=== PATIENT | male | born 1995 | race Caucasian/White ===

== ENCOUNTER 2021-04-15 09:27 | Emergency (ER) | payer OTHER, SELFPAY ==
[2021-04-15 09:31] VITALS: BP 183/93; PULSE 88; RESP 18; TEMP 36.7; O2SAT 97
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
[2021-04-15 12:10] LABS: Hepatitis B Surface Antigen Negative (Negative)
[2021-04-15 12:11] LABS: HIV 1/2 Ab P24 Ag Result Negative (Negative)
[2021-04-15 12:28] LABS: Hepatitis C Virus Antibody Negative (Negative)
== END 2021-04-15 11:55 | disposition home or self-care (01) ==
PROVIDERS: Emergency Medicine Emergency Medical Services; Emergency Provider General Practice
DX: Z77.21 Contact with and (suspected) exposure to potentially hazardous body fluids (principal)
CPT/HCPCS: 36415; 86703; 86803; 87340; 99283; G0432

== ENCOUNTER 2021-08-07 23:10 | Emergency (ER) | payer OTHER, SELFPAY ==
--- NOTE | ~2021-08-07 | XR_ITS ---
EXAMINATION: XR tibia fibula RT 2V INDICATION: Right leg pain TECHNIQUE: Two views of the right tibia and fibula are obtained on four radiographs. COMPARISON: 07/04/2009 FINDINGS: No acute fracture is identified. There appears to be a healed fracture of the proximal righ t fibula. Bone alignment at the knee and ankle is normal. The soft tissues are unremarkable. IMPRESSION: 1. No acute osseous abnormality. Reviewed, dictated and finalized at location A.
[2021-08-07 23:20] VITALS: BP 158/85; PULSE 84; RESP 17; TEMP 37.2; O2SAT 97
--- NOTE | 2021-08-07 23:42 | ED.LOWEXIN ---
HPI - Extremity Injury (Lower) General Chief Complaint: Extremity Injury, Lower Stated Complaint: leg injury Time Seen by Provider: 08/07/21 23:38 Source: patient Mode of arrival: ambulatory Limitations: no limitations History of Present Illness HPI Narrative: Patient is a 26-year-old male complaining of right calf pain after hearing something popped while running during a baseball game started prior to arrival. Patient states that his pain is a 1 out of 10 if he does not move but 10 out of 10 with any movement and cannot bear any weight. Patient denies any other pain or injury. Related Data Allergies Allergy/AdvReac Type Severity Reaction Status Date / Time No Known Allergies Allergy Unknown Unverified 02/05/06 10:57 Review of Systems Review of Systems: All systems reviewed & are unremarkable except as noted in HPI and below Constitutional: Constitutional: Denies body ache(s), Denies chills, Denies excessive sweating, Denies fatigue, Denies fever(s), Denies headache(s), Denies lethargy, Denies malaise, Denies weakness and Denies weight loss Eyes: Eyes: Denies blurry vision, Denies change in vision and Denies loss of vision ENT: Denies dizziness, Denies ear discharge, Denies headache(s), Denies lip swelling, Denies epistaxis, Denies nasal congestion, Denies neck pain, Denies throat swelling and Denies tongue swelling Cardiovascular: Cardiovascular: Denies chest pain, Denies chest pain at rest, Denies chest pain with activity, Denies diaphoresis, Denies rapid heart rate, Denies edema, Denies irregular heart rhythm, Denies lightheadedness, Denies palpitations, Denies dyspnea and Denies dyspnea on exertion Respiratory: Respiratory: Denies chest congestion, Denies cough, Denies hemoptysis, Denies dyspnea and Denies dyspnea on exertion Gastrointestinal: Gastrointestinal: Denies abdominal pain, Denies melena, Denies hematochezia, Denies diarrhea, Denies nausea, Denies vomiting and Denies hematemesis Musculoskeletal: Musculoskeletal: Denies abnormal gait, Denies deformity, Denies joint swelling, Denies neck pain and Denies numbness Neurologic: Denies Abnormal speech present, Denies abnormal gait, Denies confusion, Denies dizziness, Denies headache(s), Denies focal weakness, Denies loss of vision, Denies numbness, Denies Other visual disturbances, Denies Sensory deficit (Neuro) and Denies weakness Psychiatric: Psychiatric: Denies confusion, Denies depression, Denies auditory hallucinations, Denies homicidal ideation and Denies suicidal ideation Endocrine: Endocrine: Denies cold intolerance, Denies excessive sweating, Denies fatigue, Denies heat intolerance and Denies palpitations Hematologic/Lymphatic: Hematologic/Lymphatic: Denies easy bleeding and Denies easy bruising Allergic/Immunologic: Allergic/Immunologic: Denies lip swelling, Denies throat swelling and Denies tongue swelling [facility] Surgical History Surgical History (Updated 04/15/21 @ 11:33 by Sylvester Lock PA-C) History of orthopedic surgery Social History Social History Gender identity (if verbalized by the patient): Male Comments Past medical history: None Surgical history: Orthopedic surgery Family history: Noncontributory Social history: Non-smoker no EtOH or drug use Exam Const: General: cooperative, healthy appearing, comfortable, no acute distress, well developed, alert and awake; No confusion Orientation/consciousness: oriented to person, oriented to place, oriented to time, patient oriented x3 and No confusion Limitations: no limitations HENMT: Head: normal to inspection, normocephalic and atraumatic Ears: hearing grossly normal bilaterally, TM normal on the right and TM normal on the left General nose exam: Normal external nose present, Normal nares present and No nasal discharge present Face and sinus: normal facial exam Mouth: Yes Normal oral and palatal mucosa present, Yes lip normal, Yes t
[2021-08-08] VITALS: BP 143/91; PULSE 78; RESP 14; O2SAT 98
== END 2021-08-08 00:25 | disposition home or self-care (01) ==
PROVIDERS: Emergency Provider Emergency Medicine
DX: S86.811A Strain of other muscle(s) and tendon(s) at lower leg level, right leg, initial encounter (principal); X50.9XXA Other and unspecified overexertion or strenuous movements or postures, initial encounter; Y93.64 Activity, baseball
CPT/HCPCS: 73590; 99283

== ENCOUNTER 2023-07-04 19:33 | Emergency (ER) | payer OTHER, SELFPAY ==
--- NOTE | ~2023-07-04 | XR_ITS ---
EXAMINATION: XR ribs LT 2V INDICATION: Left rib pain TECHNIQUE: 3 views of the left ribs were obtained. COMPARISON: None. FINDINGS: No displaced rib fracture is identified. The left lung is clear. The heart size is normal. The left shoulder is unremarkable. IMPRESSION: 1. No displaced rib fracture identified. Reviewed, dictated and finalized at location F.
[2023-07-04 19:37] VITALS: BP 147/87; PULSE 93; RESP 18; TEMP 36.9; O2SAT 99
--- NOTE | 2023-07-04 19:37 | ED.CHESTPAIN ---
HPI - Chest Pain General Chief Complaint: Fall Stated Complaint: left rib pain Time Seen by Provider: 07/04/23 19:38 Source: patient Mode of arrival: ambulatory Limitations: no limitations History of Present Illness HPI narrative: Abimbola is a 28-year-old male patient presenting to clinic today with complaints of left-sided rib pain. He reports he was diving to catch a ball during a soft ball game this evening and fell a crunch and pop to the left ribs just below the breast. Is having some discomfort with taking a deep breath. No bruising or swelling noted. Related Data Home Medications Medication Instructions Recorded Confirmed No Home Medications 08/13/21 07/04/23 Allergies Allergy/AdvReac Type Severity Reaction Status Date / Time No Known Allergies Allergy Unknown Verified 07/04/23 19:42 Review of Systems Review of Systems: Pertinent positives per HPI. Patient denies any fever, chills, rash, headache, visual changes, dizziness, cough, runny nose, sore throat, shortness of breath, chest pain, palpitations, nausea, vomiting, diarrhea, constipation, abdominal pain, or any urinary issues. [facility] Surgical History Surgical History History of orthopedic surgery Social History Social History Gender identity (if verbalized by the patient): Male Comments At the time of my signature, I reviewed and agree with the nursing past medical, surgical, social, and family history. There is no relevant family history pertinent to the patient complaint. Exam Narrative: General: Well-developed, well nourished, in no apparent distress Head: Normocephalic, atraumatic. Chest wall: Even rise and fall of the chest wall with respirations, tender to palpation over the left anterior ribs just below the breast, no bruising or swelling. Cardio: Regular rate and rhythm, s1 and s2 normal, no murmur appreciated. Resp: Clear to auscultation bilaterally, no rhonchi, rales, wheezing or rubs. Extremities: No deformity, no edema, no cyanosis, capillary refill less than 2 seconds, peripheral pulses palpable and strong. Integumentary: [place], warm, and dry, intact without lesion, no rashes. Course Course Emergency Course: Portions of this record may have been created with voice recognition software. Level of Care: Express Care Visit Vital Signs Vital signs: Vital signs reviewed MDM - Chest Pain MDM Narrative Medical decision making narrative: At the time of visit patient is resting comfortably on the exam table. X-ray of the left ribs was performed and negative for any sign of fracture or malalignment. I suspect patient has a rib contusion/chest wall contusion. Supportive measures were discussed and patient voiced understanding Differential Diagnosis Differential diagnosis: Likely fracture of rib, pneumothorax, atypical chest pain, costochondritis and other (rib contusion, chest wall contusion.) Imaging Data Radiologist's impression: ITS Impressions Ribs X-Ray 07/04/23 20:09 IMPRESSION: 1. No displaced rib fracture identified. Discharge Plan Discharge Clinical Impression: Contusion of rib on left side Patient Disposition: Home, Self-Care Condition: Stable Instructions: Antibiotic Form, Rib Contusion (ED) Additional Instructions: X-ray is negative for any sign of fracture or malalignment. Rest and ice for 20 minutes at a time every 1-2 hours x 48 hours then may switch to heat Tylenol/motrin for pain as discussed. May apply aspercream, blue emu, or lidocaine to the affected area. Follow up with your PCP if symptoms persist more than 1 week. Prescriptions: No Action No Home Medications Follow-up/Referrals: PHYSICIAN,DIRECTOR OF PHARMACY [Primary Care Provider] - Time of Disposition: 19:40 [employer] Nursing Documentation ED [facility] nursing documen
== END 2023-07-04 20:15 | disposition home or self-care (01) ==
PROVIDERS: Emergency Provider Nurse Practitioner Family
DX: S20.212A Contusion of left front wall of thorax, initial encounter (principal); W18.30XA Fall on same level, unspecified, initial encounter; Y93.64 Activity, baseball
CPT/HCPCS: 71100; 99213; G0463

== ENCOUNTER 2024-04-11 20:14 | Emergency (ER) | payer OTHER, SELFPAY ==
--- NOTE | ~2024-04-11 | XR_ITS ---
EXAMINATION: XR chest 1V portable DATE: 04/11/2024 21:38 INDICATION: Dizziness. TECHNIQUE: A single frontal view of the chest was obtained on 2 radiographs. COMPARISON: None. FINDINGS: There is no pneumonia, pleural effusion, or pneumothorax. The heart size is normal. IMPRESSION: 1. No acute cardiopulmonary disease. Reviewed, dictated and finalized at location E.
--- NOTE | ~2024-04-11 | CT_ITS ---
CT ANGIOGRAM NECK AND HEAD History: Lightheadedness, right neck pressure. Technique: Axial noncontrast imaging of the brain was performed. Serial spiral axial images through t he head and neck were then obtained during arterial phase IV injection of 100 cc of Omnipaque 350. 3- D postprocessing and MIP images were then reconstructed on the remote workstation. Dose reduction arnie hnique was used on this scan by utilizing automated exposure control and iterative reconstruction arnie hnique. The dose-length product (DLP) was 1782.97 mGy-cm. CTA neck findings: Bilateral vertebral arteries are patent. Bilateral common carotid, internal carot id, and external carotid arteries are patent. No stenosis or occlusion. No aneurysm. The proximal rig ht internal carotid artery demonstrates 0% stenosis relative to the normal distal artery lumen diamet er. The proximal left internal carotid artery demonstrates 0% stenosis relative to the normal distal artery lumen diameter. CTA head findings: Distal vertebral arteries, basilar artery, and posterior cerebral arteries are pat ent. Distal internal carotid arteries, middle cerebral arteries, and anterior cerebral arteries are p atent. No stenosis or large vessel occlusion. No aneurysm. Axial noncontrast imaging of the brain is unremarkable. No acute infarct, intracranial hemorrhage, or mass lesion identified. Antonio-white differentiation is preserved. No mass effect or midline shift. Ve ntricles and subarachnoid spaces are unremarkable. Paranasal sinuses and mastoid air cells are clear. Calvarium intact. Impression: Unremarkable exam. Reviewed, dictated and finalized at [facility]. Impression: Unremarkable exam.
[2024-04-11 20:16] VITALS: BP 126/92; PULSE 74; RESP 14; TEMP 36.4; O2SAT 98
[2024-04-11 20:46] VITALS: BP 157/85; PULSE 85; RESP 17; O2SAT 97
--- NOTE | 2024-04-11 21:20 | ECG_ITS ---
Test Date: 2024-04-11 21:27:21 Measurements Intervals [place] Rate: 73 P: 55 CA: 188 QRS: 25 QRSD: 85 T: 13 QT: 375 QTc: 414 Interpretive Statements SINUS RHYTHM NORMAL ELECTROCARDIOGRAM No previous ECG available for comparison Electronically Signed On 04-12-2024 07:26:54 CDT by Alexis Menendez M.D.
[2024-04-11 21:32] VITALS: BP 140/83; PULSE 77; RESP 25; O2SAT 99
[2024-04-11] MEDS: SODIUM CHLORIDE 0.9% IV 1,000 ML 999 ML IV CONT (21:44)
[2024-04-11 21:45] VITALS: PULSE 81
[2024-04-11 21:46] VITALS: BP 150/89; PULSE 77; RESP 17; O2SAT 99
[2024-04-11 21:52] LABS: Basophils Absolute Auto 0.1 K/mm3 (0.0-0.1); Basophils Percent Auto 0.7 % (0.2-1.2); Eosinophils Absolute Auto 0.4 K/mm3 (0-0.3); Eosinophils Percent Auto 2.8 % (0-4.4); Hematocrit 42.8 % (42.0-52.0); Hemoglobin 15.8 g/dL (14.0-18.0); Immature Granulocyte Absolute 0.04 K/mm3 (0.00-0.031); Immature Granulocyte Percent A 0.3 % (0-0.5); Lymphocytes Absolute Auto 3.48 K/mm3 (0.9-3.2); Lymphocytes Percent Auto 25.4 % (18.3-44.2); Mean Corpuscular HGB Conc 36.9 g/dl (32-36); Mean Corpuscular Hemoglobin 31.5 pg (26-34); Mean Corpuscular Volume 85.3 fl (80-100); Mean Platelet Volume 9.8 fl (7.4-10.4); Monocytes Absolute Auto 0.8 K/mm3 (0.1-0.6); Monocytes Percent Auto 5.8 % (2.6-8.5); Neutrophils Absolute Auto 8.9 K/mm3 (1.3-6.7); Platelet Count Result 249 k/mm3 (150-375); Red Blood Count 5.02 M/mm3 (4.6-6.20); Red Cell Distribution Width 12.1 % (11.5-14.5); White Blood Count 13.7 K/mm3 (4.5-10.0)
[2024-04-11 22:10] LABS: Alanine Aminotransferase 148 U/L (6-50); Albumin Level 4.4 g/dL (3.5-5.1); Alkaline Phosphatase 61 U/L (38-126); Anion Gap 6 mmol/L (4-12); Aspartate Amino Transferase 61 U/L (17-59); Bilirubin,Total 0.8 mg/dL (0.2-1.3); Blood Urea Nitrogen 20 mg/dL (9-20); Carbon Dioxide 26 mmol/L (22-30); Chloride 105 mmol/L (98-107); Estimated CRCL calculation 103 ml/min; Estimated Glomerular Filt Rate > 60; Glucose 115 mg/dL (65-110); Potassium 3.9 mmol/L (3.4-5.0); Sodium 137 mmol/L (137-145)
[2024-04-11 22:16] VITALS: BP 145/76; PULSE 76; RESP 17; O2SAT 100
[2024-04-11 22:28] LABS: Influenza A QL RT-PCR Negative (Negative); Influenza B QL RT-PCR Negative (Negative); RSV RNA, RT-PCR Negative (Negative); SARS-CoV-2 RNA PCR Negative (Negative)
[2024-04-12] VITALS: BP 142/69; PULSE 72; RESP 18; O2SAT 98
--- NOTE | 2024-04-12 00:28 | ED.GENADULT ---
HPI - General Adult General Chief complaint: Dizziness Stated complaint: Dizziness, dont feel right Time Seen by Provider: 04/11/24 21:06 History of Present Illness HPI narrative: This is a 28-year-old male presenting with an episode of lightheadedness/ Feeling off . Patient says for the last week he has been feeling a pulsating pressure in the right side of his neck. It occurs at random intervals and typically lasts for 30 minutes at a time Before resolving on its own. Today while he was getting in the car he had an episode of lightheadedness and felt like his vision was getting dark. He then came to the hospital for evaluation. Patient does not have any double vision dysphagia dysarthria or loss of coordination. He does not have any fevers chills nausea vomiting diarrhea chest pain difficulty breathing. Related Data Allergies Allergy/AdvReac Type Severity Reaction Status Date / Time No Known Allergies Allergy Unknown Verified 07/04/23 19:42 [facility] Surgical History Surgical History History of orthopedic surgery Social History Social History Gender identity (if verbalized by the patient): Male Exam Narrative: APPEARANCE: No apparent distress. Head: atraumatic. TMs normal bilaterally EYES: EOMI, 3 mm equal and reactive NOSE: Atraumatic NECK: Trachea midline, no masses, no thrills, no bruits. no recreation of lightheadedness with neck movements RESPIRATORY: No increased rate of breathing clear to auscultation CARDIOVASCULAR: RRR, no peripheral edema ABDOMINAL: Non-distended MUSCULOSKELETAl: No obvious deformities NEURO: Alert. Cranial nerves 2-12 grossly intact. Sensation light touch, motor function cerebellar function intact for 4 extremities. Gait exam was normal. SKIN:: Warm, dry. Normal color PSYCHIATRIC: Normal affect Course Vital Signs Vital signs: Vital Signs Temperature 97.5 F L 04/11/24 20:16 Pulse Rate 74 04/11/24 20:16 Respiratory Rate 14 04/11/24 20:16 Blood Pressure 126/92 H 04/11/24 20:16 Pulse Oximetry 98 04/11/24 20:16 Oxygen Delivery Room Air 04/11/24 20:16 Temperature 97.5 F L 04/11/24 20:16 Pulse Rate 81 04/11/24 21:45 Respiratory Rate 14 04/11/24 20:16 Blood Pressure 126/92 H 04/11/24 20:16 Pulse Oximetry 98 04/11/24 20:16 Oxygen Delivery Room Air 04/11/24 20:16 Medical Decision Making MDM Narrative Medical decision making narrative: -Course: 28-year-old male presenting with intermittent right-sided neck pressure and an episode of lightheadedness. Patient was given a L of fluids which improved his lightheadedness. CTA of the head and neck was unremarkable without any evidence of stenosis/occlusion. On re-evaluation the patient is now stating that his vision feels strange. He is describing a minor lag in his vision. No true vertigo/dizziness/ double vision dysphagia dysarthria. Neurologic exam is still normal. Patient is concerned that he is having a stroke but his patient symptoms are not consistent with CVA. we trialed a course of meclizine which relieved his symptoms. We discussed admission for MRI versus primary care follow-up. Patient is okay following up with primary care doctor. Patient given return precautions. -DDX includes but is not limited to: Vertebral artery insufficiency, CVA, carotid artery insufficiency sinus stenosis/occlusion, CVA brain bleed, vertigo, anxiety -Independent interpretation of studies: White count 13.7. other labs within normal limits CTA without acute occlusion stenosis or aneurysm. No brain findings. Independent EKG interpretation: Rhythm [sinus], Rate [73], [place] -[normal], [place] -[normal], QRS [narrow], QTC [normal], T waves -[negative for concerning inversions], ST Segments - [Negative for concerning elevations] Final interpretations: [Normal Sinus Rhythm] -Interventio
[2024-04-12] MEDS: MECLIZINE HCL 25 MG TABLET PO (00:54)
== END 2024-04-12 01:43 | disposition home or self-care (01) ==
PROVIDERS: Emergency Provider Emergency Medicine
DX: R42 Dizziness and giddiness (principal); Z20.822 Contact with and (suspected) exposure to COVID-19
CPT/HCPCS: 36415; 70496; 70498; 71045; 80053; 85025; 87637; 93005; 96360; 96361; 99284; A9270; J7030; Q9967